=== PATIENT | female | born 1975 | race Caucasian/White ===

== ENCOUNTER 2021-01-28 07:06 | Day surgery (SDC) | payer OTHER, SELFPAY ==
[~2021-01-28] VITALS: Ht 154.9 cm; Wt 64.4 kg
[2021-01-28] MEDS ORDERED: BUPIVACAINE-MPF/EPI 0.25% 30 ML VIAL INJ ONE (09:48)
[2021-01-28] MEDS ORDERED: LIDOCAINE 1% 500 MG/50 ML VIAL ONE (09:48)
[2021-01-28] MEDS ORDERED: ONDANSETRON 4 MG/2 ML VIAL IVP PRN (11:00)
[2021-01-28] MEDS ORDERED: diphenhydrAMINE 50 MG/ML VIAL IVP PRN (11:00)
[2021-01-28] MEDS ORDERED: LACTATED RINGERS 1,000 ML IV SCH (11:00)
[2021-01-28] MEDS ORDERED: MEPERIDINE 25 MG/ML SYR ONE (12:11)
[2021-01-28] MEDS ORDERED: MORPHINE SULFATE 4 MG/ML SYR IV PRN (12:15)
[2021-01-28] MEDS ORDERED: NEOSTIGMINE 1:1000 10 MG/10 ML VIAL ONE (12:15)
[2021-01-28] MEDS ORDERED: MORPHINE SULFATE 2 MG/ML SYR IVP PRN (12:15)
[2021-01-28] MEDS ORDERED: SUCCINYLCHOLINE CHLORIDE 200 MG/10 ML VIAL IVP ONE (12:15)
[2021-01-28] MEDS ORDERED: LIDOCAINE 2% 100 MG/5 ML SYR IVP ONE (12:15)
[2021-01-28] MEDS ORDERED: ROCURONIUM 50 MG/5 ML VIAL IV ONE (12:15)
[2021-01-28] MEDS ORDERED: HYDROmorphone 1 MG/ML AMP IVP PRN (12:15)
[2021-01-28] MEDS ORDERED: KETOROLAC 30 MG/ML VIAL ONE (12:15)
[2021-01-28] MEDS ORDERED: GLYCOPYRROLATE 0.2 MG/ML VIAL ONE (12:15)
[2021-01-28] MEDS ORDERED: HYDROcodone/APAP 5/325 MG 1 TAB TAB PO PRN (12:15)
[2021-01-28] MEDS ORDERED: PROPOFOL 200 MG/20 ML VIAL IV ONE (12:15)
[2021-01-28] MEDS ORDERED: SEVOFLURANE 250 ML BTL INH ONE (12:15)
[2021-01-28] MEDS ORDERED: MIDAZOLAM 2 MG/2 ML VIAL ONE (12:15)
[2021-01-28] MEDS ORDERED: ONDANSETRON 4 MG/2 ML VIAL IV PRN (12:15)
[2021-01-28] MEDS ORDERED: fentaNYL citrate 0.05 MG/ML VIAL ONE (12:15)
[2021-01-28] MEDS ORDERED: METOCLOPRAMIDE 10 MG/2 ML INJ VIAL ONE (12:15)
[2021-01-28] MEDS ORDERED: ONDANSETRON 4 MG/2 ML VIAL ONE (12:15)
[2021-01-28] MEDS ORDERED: DEXAMETHASONE 4 MG/ML VIAL ONE (12:15)
[2021-01-28] MEDS ORDERED: HYDROmorphone PFS 2 MG/ML SYR ONE (12:28)
[2021-01-28] MEDS: HYDROmorphone 1 MG/ML AMP IVP PRN ×4 (12:31→13:02)
[2021-01-28] MEDS ORDERED: MEPERIDINE 25 MG/ML SYR IVP SCH (12:35)
[2021-01-28] MEDS ORDERED: MEPERIDINE 25 MG/ML SYR IVP PRN (13:00)
== END 2021-01-28 15:03 | disposition home or self-care (01) ==
LOC: MDS 07:06 → MMU 07:07 → MDS 15:03
PROVIDERS: ATTEND Surgery
DX: K80.10 Calculus of gallbladder with chronic cholecystitis without obstruction (principal)
CPT/HCPCS: 36415; 47562; 71045; 81025; 82374; 86886; 86900; 86901; 87426; 88304; J0330; J0690; J1100; J1170; J1885; J2001; J2175; J2250; J2405; J2704; J2710; J2765; J3010; J3490; J7030; J7060; J7120

== ENCOUNTER 2022-09-05 06:13 | Day surgery (SDC) | payer OTHER ==
[~2022-09-05] VITALS: Ht 152.4 cm; Wt 64.9 kg
[2022-09-05] MEDS ORDERED: fentaNYL citrate 0.05 MG/ML VIAL ONE (07:24)
[2022-09-05] MEDS ORDERED: LIDOCAINE 2% 100 MG/5 ML UJET TP ONE (07:25)
[2022-09-05] MEDS ORDERED: MIDAZOLAM 2 MG/2 ML VIAL ONE (07:25)
[2022-09-05] MEDS ORDERED: fentaNYL citrate 0.05 MG/ML VIAL IVP ONE (08:25)
[2022-09-05] MEDS ORDERED: MIDAZOLAM 2 MG/2 ML VIAL IVP ONE (08:25)
== END 2022-09-05 09:15 | disposition home or self-care (01) ==
LOC: MOR 06:13 → MMU 06:14 → MOR 09:15
PROVIDERS: ATTEND Internal Medicine Gastroenterology
DX: Z12.11 Encounter for screening for malignant neoplasm of colon (principal); R10.13 Epigastric pain; K59.00 Constipation, unspecified; K21.9 Gastro-esophageal reflux disease without esophagitis; F41.9 Anxiety disorder, unspecified; Z79.899 Other long term (current) drug therapy; Z20.822 Contact with and (suspected) exposure to COVID-19
CPT/HCPCS: 43235; 45378; 87426; J2250; J3010

== ENCOUNTER 2022-12-08 16:08 | Emergency (ER) | payer OTHER ==
[~2022-12-08] VITALS: Ht 154.9 cm; Wt 61.7 kg
[2022-12-08 16:14] VITALS: BP 154/65
[2022-12-08 18:03] LABS: BASOPHILS % (AUTO) 0.2 % (0.0-2.0); EOSINOPHILS # (AUTO) 0.1 K/uL (0-0.4); HEMATOCRIT 37.2 % (36-48); HEMOGLOBIN 12.2 g/dL (12.0-16.0); LYMPHOCYTES # (AUTO) 2.5 K/uL (2.5-16.5); LYMPHOCYTES % (AUTO) 42.4 % (20.5-51.1); MEAN CORPUSCULAR HEMOGLOBIN 26 pg (27-31); MEAN CORPUSCULAR HGB CONC 33 g/dL (33-37); MEAN CORPUSCULAR VOLUME 80.2 fL (80-94); MONOCYTES # (AUTO) 0.4 K/uL (0.8-1.0); MONOCYTES % (AUTO) 7.1 % (1.7-9.3); NEUTROPHILS # (AUTO) 2.9 K/uL (1.8-7.7); NEUTROPHILS % (AUTO) 49.3 % (42.2-75.2); PLATELET COUNT (AUTO) 196 K/uL (140-450); RED BLOOD CELL COUNT(AUTO) 4.64 MIL/uL (4.20-5.40); RED CELL DISTRIBUTION WIDTH 13.4 % (11.6-13.7)
[2022-12-08 18:23] LABS: ALBUMIN 3.6 g/dL (3.4-5.0); ANION GAP 7.4 (8-16); CARBON DIOXIDE 31.3 mmol/L (21-32); CREATININE 0.9 mg/dL (0.6-1.3); POTASSIUM 3.7 mmol/L (3.5-5.1); TOTAL BILIRUBIN 0.3 mg/dL (0.0-1.0)
[2022-12-08 18:35] LABS: APPEARANCE,URINE CLEAR (CLEAR); COLOR,URINE YELLOW (YELLOW); UGLUCOSE NEGATIVE (NEGATIVE)
[2022-12-08 18:36] LABS: BILIRUBIN,URINE NEGATIVE (NEGATIVE); BLOOD, URINE TRACE (NEGATIVE); LEUKOCYTE ESTERASE ,URINE NEGATIVE (NEGATIVE); NITRITE, URINE NEGATIVE (NEGATIVE)
[2022-12-08 18:46] LABS: WBC,URINE 0-5 /HPF (0-5)
[2022-12-08 18:47] LABS: OTHER CASTS, URINE None Seen /LPF (None Seen)
[2022-12-08] MEDS ORDERED: FAMO-90 PO (18:53)
[2022-12-08] MEDS ORDERED: ALUMINUM HYD/MAG/SIMETHICONE 30 ML UDC PO ONE (18:55)
--- NOTE | 2022-12-08 19:32 | NUR ---
Dr. Hubbard explained results and treatment plans.
[2022-12-08 19:40] VITALS: BP 144/72
== END 2022-12-08 19:40 | disposition home or self-care (01) ==
LOC: MED 16:08
DX: R10.13 Epigastric pain (principal); M54.50 Low back pain, unspecified; R19.7 Diarrhea, unspecified; Z90.49 Acquired absence of other specified parts of digestive tract
CPT/HCPCS: 36415; 80053; 81001; 81025; 83690; 85025; 99283

== ENCOUNTER 2023-09-08 11:38 | Emergency (ER) | payer OTHER ==
[~2023-09-08] VITALS: Ht 152.4 cm; Wt 66.2 kg
[~2023-09-08 11:38] MED LIST: FAMO-90 PO
[2023-09-08 11:45] VITALS: BP 112/63; PULSE 70; RESP 20; TEMP 98.7; O2SAT 100
[2023-09-08] MEDS ORDERED: ACETAMINOPHEN EXTRA STRENGTH 500 MG TAB PO ONE (12:05)
[2023-09-08] MEDS ORDERED: KETOROLAC 30 MG/ML VIAL IM ONE (12:05)
[2023-09-08] MEDS ORDERED: IBUP-2213 PO (14:03)
[2023-09-08 14:32] VITALS: BP 102/60; PULSE 56; RESP 18; TEMP 97.9; O2SAT 100
== END 2023-09-08 14:28 | disposition home or self-care (01) ==
LOC: MED 11:38
DX: S39.012A Strain of muscle, fascia and tendon of lower back, initial encounter (principal); S29.012A Strain of muscle and tendon of back wall of thorax, initial encounter; S80.02XA Contusion of left knee, initial encounter; J69.8 Pneumonitis due to inhalation of other solids and liquids; Z79.1 Long term (current) use of non-steroidal anti-inflammatories (NSAID); Z79.899 Other long term (current) drug therapy
CPT/HCPCS: 71045; 73562; 81025; 96372; 99284; J1885